=== PATIENT | female | born 1960 | race Caucasian/White ===

== ENCOUNTER 2022-05-27 13:03 | Outpatient (CLI) | payer MEDICARE | END 2022-05-27 13:04 | disposition home or self-care (01) | PROVIDERS: ATTEND Family Medicine | DX: G35 Multiple sclerosis (principal); R29.898 Other symptoms and signs involving the musculoskeletal system ==

== ENCOUNTER 2023-08-20 10:29 | Outpatient (CLI) | payer MEDICARE | END 2023-08-20 10:30 | disposition home or self-care (01) | PROVIDERS: ATTEND Psychiatry & Neurology Neurology | DX: G35 Multiple sclerosis (principal); R29.898 Other symptoms and signs involving the musculoskeletal system ==